=== PATIENT | female | born 1940 | race Hispanic/Latino ===

== ENCOUNTER 2019-12-01 16:54 | Emergency (ER) | payer OTHER, MEDICARE ==
[2019-12-01] MEDS ORDERED: ORPHENADRINE CITRATE 30 MG/ML ML ONE (17:45)
[2019-12-01] MEDS ORDERED: KETOROLAC TROMETHAMINE 15MG/ML ONE (17:45)
[2019-12-01 17:52] LABS: BASOPHILS % (AUTO) 0.3 % (0.0-5.0); EOSINOPHILS % (AUTO) 1.5 % (0.0-8.0); HEMATOCRIT 35.2 % (36-48); LYMPHOCYTES % (AUTO) 21.4 % (21.0-51.0); MEAN CORPUSCULAR HEMOGLOBIN 29.7 pg (27.0-33.0); MONOCYTES % (AUTO) 9.6 % (3.0-13.0); NEUTROPHILS % (AUTO) 66.4 % (40.0-77.0); PLATELET COUNT (AUTO) 299 K/uL (130-400); RED BLOOD CELL COUNT(AUTO) 3.91 MIL/uL (4.00-5.50); RED CELL DISTRIBUTION WIDTH 12.4 % (11.0-15.5)
[2019-12-01 18:04] LABS: POTASSIUM 4.4 mmol/L (3.5-5.1)
[2019-12-01 18:09] LABS: ALBUMIN 3.7 g/dL (3.5-5.0); BILIRUBIN,TOTAL 0.3 mg/dL (0.2-1.0); TOTAL PROTEIN, SERUM 8.2 g/dL (6.0-8.3)
== END 2019-12-01 19:13 | disposition home or self-care (01) ==
LOC: EDH 16:54
DX: S16.1XXA Strain of muscle, fascia and tendon at neck level, initial encounter (principal); X58.XXXA Exposure to other specified factors, initial encounter; Y93.89 Activity, other specified; Y92.89 Other specified places as the place of occurrence of the external cause; Y99.8 Other external cause status; I10 Essential (primary) hypertension; E11.9 Type 2 diabetes mellitus without complications; E78.5 Hyperlipidemia, unspecified
CPT/HCPCS: 36415; 72125; 80053; 85025; 96374; 96375; 99284; J1885; J2360

== ENCOUNTER → 2025-01-24 | Outpatient (CLI) | payer OTHER, MEDICARE ==
--- NOTE | 2025-01-24 15:55 | HMCIMG ---
BONE DENSITOMETRY: HISTORY: Asymptomatic menopausal state Comparison: none FINDINGS: BMD measured at AP spine L1-L4 is 1.223 g/cm2 with a T-score of 1.6 Bone density is up to 10% below young normal. This patient is considered normal according to WHO criteria. Fracture risk is low. BMD measured at Left Femoral Neck is 0.656 g/cm2 with a T-score of -1.8 Bone density is between 10 and 25% below young normal. This patient is considered osteopenic. Fracture risk is moderate. BMD measured at Left Femoral Total is 0.808 g/cm2 with a T-score of -1.1 Bone density is between 10 and 25% below young normal. This patient is considered osteopenic. Fracture risk is moderate. IMPRESSION: Osteopenia. Treatment and follow-up recommended.
== END | disposition home or self-care (01) ==
LOC: RAH 14:06
PROVIDERS: ATTEND Internal Medicine
DX: Z13.820 Encounter for screening for osteoporosis (principal); M85.852 Other specified disorders of bone density and structure, left thigh; Z78.0 Asymptomatic menopausal state
CPT/HCPCS: 77080